=== PATIENT | male | born 1995 | race Two or more races ===

== ENCOUNTER 2020-10-15 07:55 | Outpatient (REF) | payer OTHER, SELFPAY ==
[2020-10-15 10:54] LABS: SARS COV2 PCR INHOUSE NEGATIVE (Negative)
== END 2020-10-15 07:56 | disposition home or self-care (01) ==
LOC: HO.LAB 07:55
PROVIDERS: Visit Provider Internal Medicine
DX: Z20.822 Contact with and (suspected) exposure to COVID-19 (principal)
CPT/HCPCS: C9803; U0003

== ENCOUNTER 2020-10-26 12:06 | Outpatient (REF) | payer OTHER, SELFPAY ==
[2020-10-26 13:26] LABS: COVID-19 Test Negative (Negative)
== END 2020-10-26 12:07 | disposition home or self-care (01) ==
LOC: HO.LAB 12:06
PROVIDERS: Visit Provider Internal Medicine
DX: Z20.822 Contact with and (suspected) exposure to COVID-19 (principal)
CPT/HCPCS: 36415; 87635; C9803